=== PATIENT | male | born 1965 | race Caucasian/White ===

== ENCOUNTER 2017-10-23 18:48 | Emergency (ER) | payer MEDICAID ==
[2017-10-23 18:58] VITALS: BP 149/85; PULSE 71; RESP 20; TEMP 99.3; O2SAT 99
--- NOTE | 2017-10-23 20:09 | C.PDOC ---
History Of Present Illness 52yo male, presents to ED for evaluation of a burning sensation with itching to bilateral hand for the past 3 weeks and associated intermittent episodes of tingling and pain. Patient states he used OTC ointment with no relief of symptoms. He denies any trauma, injury, weakness or numbness. Time Seen by Provider: 10/23/17 19:43 Chief Complaint (Nursing): Upper Extremity Problem/Injury History Per: Patient History/Exam Limitations: no limitations Onset/Duration Of Symptoms: Persistent Current Symptoms Are (Timing): Still Present Additional History Per: Patient Past Medical History Reviewed: Historical Data, Nursing Documentation, Vital Signs Vital Signs: Last Vital Signs Temp 99.3 F 10/23/17 18:54 Pulse 71 10/23/17 18:54 Resp 20 10/23/17 18:54 BP 149/85 10/23/17 18:54 Pulse Ox 99 10/23/17 21:39 - Medical History PMH: HTN Surgical History: No Surg Hx Family History: States: No Known Family Hx, Unknown Family Hx - Social History Hx Tobacco Use: No Hx Alcohol Use: Yes Hx Substance Use: No - Immunization History Hx Tetanus Toxoid Vaccination: No Hx Influenza Vaccination: No Hx Pneumococcal Vaccination: No Review Of Systems Except As Marked, All Systems Reviewed And Found Negative. Musculoskeletal: Positive for: Hand Pain (burning sesnation with itching to bilateral hands) Neurological: Negative for: Weakness, Numbness Physical Exam - Physical Exam Appears: Non-toxic, No Acute Distress Skin: Normal Color, Warm, Dry, No Rash Head: Atraumatic, Normacephalic Eye(s): bilateral: Normal Inspection Nose: Normal Extremity: Normal ROM, No Tenderness, Capillary Refill (< 2 seconds), No Deformity, No Swelling, No Other (rash to hands) Extremity: Bilateral: Normal Color And Temperature Pulses: Left Radial: Normal, Right Radial: Normal Neurological/Psych: Oriented x3, Normal Motor, Normal Sensation Gait: Steady ED Course And Treatment O2 Sat by Pulse Oximetry: 99 (RA) Pulse Ox Interpretation: Normal Progress Note: Patient given prescription for Gabapentin and Cortisone cream; instructed to take medications as prescribed. Patient instructed to follow up with PMD in 2-3 days. 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 - Scribe Statement The provider has reviewed the documentation as recorded by the Scribe (Malina Piper) Provider Attestation: All medical record entries made by the Joseibe were at my direction and personally dictated by me. I have reviewed the chart and agree that the record accurately reflects my personal performance of the history, physical exam, medical decision making, and the department course for this patient. I have also personally directed, reviewed, and agree with the discharge instructions and disposition.
== END 2017-10-23 20:22 | disposition home or self-care (01) ==
LOC: C.ER 18:48
DX: G62.9 Polyneuropathy, unspecified (principal)

== ENCOUNTER 2017-11-23 08:06 | Emergency (ER) | payer MEDICAID ==
[2017-11-23] MEDS ORDERED: Sodium Chloride 0.9% 1,000 ML IV ONE (08:31)
[2017-11-23] MEDS ORDERED: Sodium Chloride 0.9% 1,000 ML ONE (08:47)
[2017-11-23 08:50] LABS: BASO % 0.7 % (0.0-2.0); EOS # 0.2 K/uL (0.0-0.7); LYMPH # 1.5 K/uL (1.0-4.3); LYMPH % 22.9 % (20.0-40.0); MEAN CELL VOLUME 80.1 fL (80.0-94.0); MEAN CORPUSCULAR HEMOGLOBIN 27.2 pg (27.0-31.0); MEAN PLATELET VOLUME 8.5 fL (7.2-11.7); MONO # 0.4 K/uL (0.0-0.8); MONO % 6.5 % (0.0-10.0); NEUT # 4.4 K/uL (1.8-7.0); NEUT % 66.9 % (50.0-75.0); RBC 5.51 Mil/uL (4.40-5.90); RED CELL DISTRIBUTION WIDTH 12.7 % (11.5-14.5); WHITE BLOOD COUNT 6.6 K/uL (4.8-10.8)
[2017-11-23 08:55] LABS: SQUAMOUS EPITHIAL < 1 /hpf (0-5); URINE BILIRUBIN NEGATIVE (NEGATIVE); URINE BLOOD 1+ (NEGATIVE); URINE CLARITY Clear (Clear); URINE COLOR Yellow (YELLOW); URINE GLUCOSE (UA) NORMAL (Normal); URINE LEUKOCYTE ESTERASE NEG Leu/uL (Negative); URINE PROTEIN NEGATIVE (NEGATIVE); URINE UROBILINOGEN NORMAL mg/dL (0.2-1.0)
[2017-11-23 09:11] LABS: ALB/GLOB RATIO 1.4 (1.0-2.1); ALBUMIN 4.6 g/dL (3.5-5.0); ALT/SGPT 73 U/L (21-72); AMYLASE 142 U/L (30-110); AST/SGOT 80 U/L (17-59); BLOOD UREA NITROGEN 9 mg/dL (9-20); CALCIUM 9.1 mg/dl (8.6-10.4); GFR AFRICAN-AMERICAN > 60; GFR NON-AFRICAN AMERICAN > 60; LIPASE 121 U/L (23-300)
[2017-11-23] MEDS ORDERED: Iohexol 350mg/ml 100 ML ONE (10:39)
--- NOTE | 2017-11-23 10:50 | RAD ---
Date of service: 11/23/2017 PROCEDURE: CHEST RADIOGRAPH, 1 VIEW HISTORY: abd pain COMPARISON: 11/20/2014. FINDINGS: LUNGS: Clear. PLEURA: No pneumothorax or pleural fluid seen. CARDIOVASCULAR: Normal. OSSEOUS STRUCTURES: No significant abnormalities. Stable contiguous presumed posttraumatic posterior lateral right rib fractures. VISUALIZED UPPER ABDOMEN: Normal. OTHER FINDINGS: None. IMPRESSION: No active disease. No acute/significant interval changes.
--- NOTE | 2017-11-23 11:04 | C.PDOC ---
History Of Present Illness 52-year-old male w/PMHx of " liver ds", GERD, alcohol use, presents to the emergency department for evaluation of epigastric tightness, burning sensation associated with nausea gradually developed for the past 2-3 days. This morning, he developed right lower quadrant abdominal pain, prompting visit. Otherwise, pt denies fever, chills, dizziness, neck pain, CP, SOB, dyspnea, diapahoresis, palpitation, vomiting, hematemesis, melena, hematoschezia, back pain, UTi sx. Pt reports, last alcohol consumption was 2 days ago. Ambulate to Ed for evaluation, not in any apparent distress. Time Seen by Provider: 11/23/17 08:15 Chief Complaint (Nursing): Chest Pain History Per: Patient History/Exam Limitations: no limitations Past Medical History Reviewed: Historical Data, Nursing Documentation, Vital Signs Vital Signs: Last Vital Signs Temp 98.9 F 11/23/17 12:20 Pulse 82 11/23/17 12:20 Resp 18 11/23/17 12:20 BP 160/86 H 11/23/17 12:20 Pulse Ox 98 11/23/17 12:20 - Medical History PMH: HTN Family History: States: No Known Family Hx - Social History Hx Tobacco Use: No Hx Alcohol Use: Yes Hx Substance Use: No - Immunization History Hx Tetanus Toxoid Vaccination: No Hx Influenza Vaccination: No Hx Pneumococcal Vaccination: No Review Of Systems Constitutional: Negative for: Fever Cardiovascular: Negative for: Chest Pain Respiratory: Negative for: Shortness of Breath Gastrointestinal: Positive for: Nausea, Abdominal Pain. Negative for: Diarrhea Skin: Negative for: Rash Neurological: Negative for: Weakness, Headache, Dizziness Physical Exam - Physical Exam Appears: Well, Non-toxic, No Acute Distress Skin: Normal Color, Warm, Dry, No Rash Head: Normacephalic Eye(s): bilateral: PERRL Nose: No Flaring Oral Mucosa: Moist Tongue: Normal Appearing Lips: Normal Appearing Throat: No Erythema, No Drooling Neck: Normal ROM, Trachea Midline, Supple Cardiovascular: Rhythm Regular, No Murmur, No JVD Respiratory: No Decreased Breath Sounds, No Accessory Muscle Use, No Stridor, No Wheezing Gastrointestinal/Abdominal: Soft, Tenderness (mild RLQ), No Organomegaly, No Distention, No Guarding, No Rebound Back: No CVA Tenderness Extremity: Normal ROM, No Pedal Edema, No Deformity, No Swelling Neurological/Psych: Oriented x3, Normal Speech ED Course And Treatment - Laboratory Results Result Diagrams: 11/23/17 08:43 11/23/17 08:43 Lab Interpretation: No Acute Changes ECG: Interpreted By Me, Viewed By Me ECG Rhythm: Sinus Rhythm Interpretation Of ECG: SR@81/min, NAD, no acute T wave or ST-T changes. O2 Sat by Pulse Oximetry: 99 (RA) Pulse Ox Interpretation: Normal - CT Scan/US CT abd/pelvis Other Rad Studies (CT/US): Radiology Report Reviewed CT/US Interpretation: IMPRESSION: 1. No CT evidence for acute appendicitis. 2. Submucosal fatty infiltration throughout the colon could represent chronic colitis. Clinical follow-up is advised. 3. Distended gallbladder without evidence for calcified gallstones, wall thickening or pericholecystic fluid. If clinically indicated, correlation with right upper quadrant ultrasound may be performed. 4. Fatty liver. 5. Small sliding hiatal hernia. Apparent mural thickening in the distal esophagus is nonspecific and could be related to underdistention however nonspecific esophagitis cannot be excluded. If indicated, correlation with EGD may be performed. Progress Note: Pt was OBS in ED for 4 hours and reports moderate improvement in sx. Pt was given PO challenge, tolerate PO well in ED. On re-evaluation, pt is afebrile, hemodynamicaly stable. Non-toxic. PulsOEx 98% RA ENT: no acute findings. neck; Supple, (-) JVD. Lungs: CTA B/L, BS equal B/L. CVS: (+)S1S2, reg. Abd: benign, (-) guarding, (-) rebound. Back: (-) CVA tenderness. Neurologicaly intact. Blood owrk review, mild amylase and LFT elevation. Imaging review (-) acute pathology noted. case discussed with , since pt is asymptoamtic at present time, tolerate Po well in ED, discharge with outpt f/u recommend at this time. Pt advised. ref. to f/u with PMD in 1-2 days for re-eval. return to ED if any worsening or new changes. Disposition Counseled Patient/Family Regarding: Studies Performed, Diagnosis, Need For Followup, Rx Given - Disposition Referrals: Vitaly Anthony MD [Medical Doctor] - Disposition: HOME/ ROUTINE Disposition Time: 11:40 Condition: STABLE Additional Instructions: DIET RESTRICTION ENCOURAGE FLUIDS TAKE MEDICATION PRESCRIBED FOLLOW UP WITH PMD, GI IN 1-2 DAYS FOR RE-EVALUATION. RETURN TO ED IF ANY WORSENING OR NEW CHANGES. Prescriptions: Famotidine [Pepcid] 20 mg PO BID #20 tab Pantoprazole Sodium [Protonix] 40 mg PO DAILY #30 tablet.dr Instructions: Acid Reflux (Gastroesophageal Reflux Disease), Adult (DC), Alcohol Poisoning Forms: [employer] (Maldivian) - Clinical Impression Clinical Impression: Abdominal pain, Alcohol intoxication, GERD (gastroesophageal reflux disease) - Scribe Statement The provider has reviewed the documentation as recorded by the Scribe (Sathya Tabares) All medical record entries made by the Scribe were at my direction and personally dictated by me. I have reviewed the chart and agree that the record accurately reflects my personal performance of the history, physical exam, medical decision making, and the department course for this patient. I have also personally directed, reviewed, and agree with the discharge instructions and disposition.
--- NOTE | 2017-11-23 11:33 | CT ---
Date of service: 11/23/2017 PROCEDURE: CT Abdomen and Pelvis with contrast HISTORY: RLQ pain COMPARISON: None. TECHNIQUE: CT scan of the abdomen and pelvis was performed after administration of intravenous contrast. Oral contrast was not administered. Coronal and sagittal reformatted images were obtained. Contrast dose: 100 mL Omnipaque 350 Radiation dose: Total exam DLP = 452.47 mGy-cm. This CT exam was performed using one or more of the following dose reduction techniques: Automated exposure control, adjustment of the mA and/or kV according to patient size, and/or use of iterative reconstruction technique. FINDINGS: LOWER THORAX: The visualized lungs are clear. LIVER: The liver is normal in size and there is diffuse fatty infiltration. No gross lesion or ductal dilatation. GALLBLADDER AND BILE DUCTS: The gallbladder is distended without wall thickening or pericholecystic fluid. No calcified gallstones. PANCREAS: Normal in size with homogeneous enhancement. No gross lesion or ductal dilatation. SPLEEN: Normal in size and appearance. ADRENALS: No discrete nodule. KIDNEYS AND URETERS: Both kidneys are normal in size with homogeneous enhancement. Tiny low-attenuation areas in the right kidney too small to characterize by CT criteria. There are punctate nonobstructing stones in both kidneys. No hydronephrosis or mass VASCULATURE: No aortic aneurysm. BOWEL: Evaluation of the bowel is limited in the absence of oral contrast. The small bowel loops are normal in caliber. There is diffuse submucosal fat in the colon. No bowel dilatation or obstruction APPENDIX: Normal appendix. PERITONEUM: No free fluid. No free air. LYMPH NODES: No enlarged lymph nodes. BLADDER: Well distended and normal in appearance. REPRODUCTIVE: The prostate gland is normal in size. BONES: No acute fracture. Within normal limits for the patient's age with OTHER FINDINGS: There is a small sliding hiatal hernia. There is apparent circumferential mural thickening in the distal esophagus. There are bilateral small fat containing inguinal hernias. IMPRESSION: 1. No CT evidence for acute appendicitis. 2. Submucosal fatty infiltration throughout the colon could represent chronic colitis. Clinical follow-up is advised. 3. Distended gallbladder without evidence for calcified gallstones, wall thickening or pericholecystic fluid. If clinically indicated, correlation with right upper quadrant ultrasound may be performed. 4. Fatty liver. 5. Small sliding hiatal hernia. Apparent mural thickening in the distal esophagus is nonspecific and could be related to underdistention however nonspecific esophagitis cannot be excluded. If indicated, correlation with EGD may be performed.
[2017-11-23 12:24] VITALS: BP 160/86; PULSE 82; RESP 18; TEMP 98.9
[2017-11-23 17:15] VITALS: O2SAT 99
== END 2017-11-23 12:20 | disposition home or self-care (01) ==
LOC: C.ER 08:06
DX: K21.9 Gastro-esophageal reflux disease without esophagitis (principal); F10.129 Alcohol abuse with intoxication, unspecified; Y90.4 Blood alcohol level of 80-99 mg/100 ml; R10.9 Unspecified abdominal pain; I10 Essential (primary) hypertension; K76.9 Liver disease, unspecified
CPT/HCPCS: 71045; 74177; 80053; 80320; 81001; 82140; 82150; 82948; 83690; 84484; 85025; 96361; 96374; 96375; 99285; C9113; J2405; J7030; Q9967

== ENCOUNTER 2018-03-16 06:08 | Day surgery (SDC) | payer MEDICAID ==
[2018-03-13 13:39] VITALS: BMI 22.4
[2018-03-16] MEDS ORDERED: Midazolam 2 MG/2 ML VIAL ONE (08:11)
[2018-03-16] MEDS ORDERED: Propofol 10 mg/ml Inj (20 ML) ONE ×2 (08:11)
[2018-03-16] MEDS: Lidocaine/Epinephrine 1% 1:100000 10 ML IJ ONE ×2 (08:13→08:27)
[2018-03-16] MEDS: ceFAZolin IV 1 gm in Dextrose 2 GM/100 ML BAG IVPB ONE ×2 (08:14→08:21)
[2018-03-16] MEDS: Bupivacaine 0.25% 20 ML INJ IJ ONE ×4 (08:14→10:05)
[2018-03-16] MEDS ORDERED: Neostigmine Methylsulfate 3mg/3ml Syringe IV ONE (10:03)
[2018-03-16] MEDS ORDERED: HYDROmorphone 0.5 mg/0.5 ml ISec IVP PRN (10:30)
--- NOTE | 2018-03-16 10:34 | PCM.SURG1 ---
Surgeon's Initial Post Op Note - Surgeon's Notes Surgeon: Dr. Fry Carousel Attendant: Dr. Mcclain PGY3 Type of Anesthesia: General Endo Pre-Operative Diagnosis: Right Inguinal Hernia Operative Findings: See operative Dictation Post-Operative Diagnosis: Bilateral direct inguinal hernias Operation Performed: Robotic bilateral inguinal hernia repair with mesh and a TAP block Specimen/Specimens Removed: None Estimated Blood Loss: EBL {In ML}: 5 Blood Products Given: N/A Drains Used: No Drains Post-Op Condition: Good Date of Surgery/Procedure: 03/16/18 Time of Surgery/Procedure: 10:33
[2018-03-16] MEDS ORDERED: Oxycodone/Acetaminophen 5/325 mg Tab PO PRN (10:38)
[2018-03-16] MEDS ORDERED: POLYETHYLENE GLYCOL 3350 17 GM/Dose PACKET PO STA (10:45)
[2018-03-16 11:00] VITALS: O2SAT 100
[2018-03-16 15:00] VITALS: BP 145/85; PULSE 62; RESP 20; TEMP 97.8
--- NOTE | 2018-03-17 00:36 | OP ---
PROCEDURE DATE: 03/16/2018 PREOPERATIVE DIAGNOSES: 1. Right inguinal hernia. 2. Possible left inguinal hernia. 3. Bilateral groin pain. POSTOPERATIVE DIAGNOSES: 1. Right inguinal hernia. 2. Possible left inguinal hernia. 3. Bilateral groin pain. PROCEDURES DONE: 1. Robotic right inguinal hernia repair with a mesh. 2. Robotic left inguinal hernia repair with a mesh. 3. Laparoscopic bilateral transversus abdominis plane block placement. SURGEON: Yemi Fry MD FLUID POWER MECHANIC: ANA Win TYPE OF ANESTHESIA: General endotracheal tube anesthesia. ESTIMATED BLOOD LOSS: Around 10 mL. DRAINS: None. PATHOLOGY: None. COMPLICATIONS: None. INTRAOPERATIVE FINDINGS: The patient had right direct inguinal hernia. The patient also had left direct inguinal hernia containing preperitoneal fat. DESCRIPTION OF PROCEDURE: On intraoperative steps, this is a 52-year-old male who was diagnosed with right inguinal hernia and patient also complaining of the left groin pain, and the patient was consented for the robotic right inguinal hernia repair with a mesh, possible bilateral repair, brought to the OR and placed supine on the operating table after induction of the anesthesia. The abdomen was prepped and draped in usual sterile fashion. A supraumbilical transverse incision was made after incising the skin, subcutaneous tissue, and the fascia. Robotic camera port was placed. Pneumo was created. Another three 8-mm port was placed in the upper abdomen. Robot was brought in. Camera arm as well as arm one and arm two were docked. The patient found to have right inguinal hernia. The patient also had left direct inguinal hernia and now the peritoneum was excised from the left ASIS up to the right ASIS, and the dissection was carried down into the midline up to the space of Retzius laterally on the right side. The peritoneum was dissected; and the vas deferens and spermatic cord vessels were identified. The dissection was carried down deep up to the hernial sac. The direct hernial sac was reduced with preperitoneal fat and the dissection was carried down inferiorly up to the pelvic brim. Now, the similar dissection was done on the left side, the peritoneum was dissected from the lateral abdominal wall. The vas deferens and the spermatic cord vessels were identified, and it was from the sac. The left hernial sac was reduced back into the pelvic cavity with the preperitoneal fat and the inferior dissection was done up to the pelvic brim. Now, the left and right transversalis fascia was everted and it was stapled in the midline and the right and left anatomical mesh was placed. After proper implantation of the mesh, the peritoneum was sutured with 3-0 PDS continuous suture. All the robotic instrument was taken out. Robot was undocked. The patient tolerated the procedure well. Count of instrument and gauze was correct. Now the laparoscopic bilateral TAP block was given; 30:30 mL of Marcaine was injected into the transversus abdominis muscle plane block, and after that, all the ports were taken out under vision. Pneumo was deflated. Umbilical port site was closed in two layers, the fascia with 0 Vicryl interrupted sutures, skin with 4-0 Monocryl and dry sterile dressing was applied. The patient tolerated procedure well. Count of instrument and gauze was correct. There was no apparent complication. The patient was extubated in OR, sent to the postanesthesia care unit in stable condition. Yemi Fry MD
== END 2018-03-16 15:01 | disposition home or self-care (01) ==
LOC: C.SDS 06:08
PROVIDERS: ATTEND Surgery Surgical Critical Care
DX: K40.20 Bilateral inguinal hernia, without obstruction or gangrene, not specified as recurrent (principal)
CPT/HCPCS: 49650; 64488; J0690; J1885; J2250; J2405; J2704; J2710; J3010